=== PATIENT | female | born 1985 | race Caucasian/White ===

== ENCOUNTER 2016-11-20 19:27 | Emergency (ER) | payer MEDICAID, OTHER, SELFPAY ==
[~2016-11-20] VITALS: Ht 162.6 cm; Wt 70.5 kg
[2016-11-20] MEDS ORDERED: TESS100C PO (20:44)
[2016-11-20 20:48] VITALS: BP 118/72
== END 2016-11-20 20:49 | disposition home or self-care (01) ==
LOC: M ED 19:27
DX: R05 Cough (principal); Z77.098 Contact with and (suspected) exposure to other hazardous, chiefly nonmedicinal, chemicals; Z87.891 Personal history of nicotine dependence